=== PATIENT | female | born 1935 | race Caucasian/White ===

== ENCOUNTER 2024-07-27 14:31 | Outpatient (CLI) | payer MEDICARE | END 2024-07-27 14:32 | disposition home or self-care (01) | LOC: CSHCP 14:31 | PROVIDERS: ATTEND Internal Medicine Critical Care Medicine | DX: J44.89 Other specified chronic obstructive pulmonary disease (principal); R09.02 Hypoxemia | CPT/HCPCS: 94060; 94618; 94664; 94726; 94729 ==

== ENCOUNTER 2025-07-27 13:50 | Outpatient (CLI) | payer MEDICARE | END 2025-07-27 13:51 | disposition home or self-care (01) | LOC: CSHMAMMO 13:50 | PROVIDERS: ATTEND Specialist | DX: R92.8 Other abnormal and inconclusive findings on diagnostic imaging of breast (principal) | CPT/HCPCS: 76642; 77066; G0279 ==